=== PATIENT | male | born 1960 | race African-American/Black ===

== ENCOUNTER 2017-01-02 13:53 | Emergency (ER) | payer MEDICARE, OTHER ==
[~2017-01-02] VITALS: Ht 177.8 cm; Wt 90.9 kg
[2017-01-02] MEDS ORDERED: HYPERTENSION PO (14:10)
[2017-01-02] MEDS ORDERED: PHEN100C23 PO (14:10)
[2017-01-02] MEDS ORDERED: PHENYTOIN SODIUM 100 MG ER CAPSULE PO ONE (17:30)
[2017-01-02 17:39] VITALS: BP 154/95
== END 2017-01-02 18:04 | disposition home or self-care (01) ==
LOC: EDUNIT# 13:53 → EMS 13:55
DX: G40.909 Epilepsy, unspecified, not intractable, without status epilepticus (principal); F10.10 Alcohol abuse, uncomplicated; R79.1 Abnormal coagulation profile
CPT/HCPCS: 99285